=== PATIENT | female | born 1955 | race Caucasian/White ===

== ENCOUNTER 2020-03-06 08:42 | Outpatient (CLI) | payer OTHER, MEDICARE ==
[2020-03-06] MEDS ORDERED: TURMERIC PO (09:36)
[2020-03-06] MEDS ORDERED: ACET1TAB64 PO (09:36)
[2020-03-06] MEDS ORDERED: HYDR50CA2 PO (09:36)
[2020-03-06] MEDS ORDERED: VITAMIN B12 INJ (09:36)
== END 2020-03-06 23:59 | disposition home or self-care (01) ==
LOC: STAR 08:42
PROVIDERS: ATTEND Obstetrics & Gynecology Reproductive Endocrinology
DX: Z01.812 Encounter for preprocedural laboratory examination (principal); Z20.822 Contact with and (suspected) exposure to COVID-19; M25.572 Pain in left ankle and joints of left foot; S93.402A Sprain of unspecified ligament of left ankle, initial encounter; S82.842A Displaced bimalleolar fracture of left lower leg, initial encounter for closed fracture; X58.XXXA Exposure to other specified factors, initial encounter; Y93.89 Activity, other specified; Y92.89 Other specified places as the place of occurrence of the external cause; Y99.8 Other external cause status
CPT/HCPCS: 87635; 93005

== ENCOUNTER 2020-03-10 08:10 | Day surgery (SDC) | payer MEDICARE, OTHER ==
[2020-03-06 09:29] VITALS: BP 124/84
[~2020-03-10] VITALS: Ht 172.7 cm; Wt 105.3 kg
[~2020-03-10 08:10] MED LIST: ACET1TAB64 PO; HYDR50CA2 PO; TURMERIC PO; VITAMIN B12 INJ
[2020-03-10] MEDS ORDERED: vit b 12 PO (08:34)
[2020-03-10] MEDS ORDERED: CHLORHEXIDINE 15 ML UDC ONE (08:39)
[2020-03-10] MEDS ORDERED: LACTATED RINGERS 1,000 ML IV SCH (09:00)
[2020-03-10] MEDS ORDERED: CHLORHEXIDINE 15 ML UDC MM ONE (09:00)
[2020-03-10] MEDS ORDERED: LIDOCAINE/PF 1%, 30ML ONE (09:02)
[2020-03-10] MEDS ORDERED: EPINEPHRINE 1 MG/ML, 1ML ONE (09:02)
[2020-03-10] MEDS ORDERED: BUPIVACAINE/PF 0.5% ONE (09:02)
[2020-03-10] MEDS ORDERED: SCOPOLAMINE 1MG PATCH TD ONE (09:52)
[2020-03-10] MEDS ORDERED: MIDAZOLAM 1 MG/ML, 2ML ONE (09:53)
[2020-03-10] MEDS ORDERED: FENTANYL PF 100 MCG/2ML ONE (09:53)
[2020-03-10] MEDS ORDERED: PROPOFOL 10 MG/ML, 20ML ONE (09:57)
[2020-03-10] MEDS ORDERED: ONDANSETRON 2MG/ML, 2ML ONE (09:57)
[2020-03-10] MEDS ORDERED: CEFAZOLIN 1,000 MG ONE (09:57)
[2020-03-10] MEDS ORDERED: DEXAMETHASONE 4 MG/ML, 1ML ONE (09:57)
[2020-03-10] MEDS ORDERED: PROMETHAZINE 25 MG/ML, 1ML IVPush PRN (10:30)
[2020-03-10] MEDS ORDERED: MEPERIDINE/PF 25MG/0.5ML IVPush PRN (10:30)
[2020-03-10] MEDS ORDERED: KETOROLAC 30 MG/1 ML IVPush PRN (10:30)
[2020-03-10] MEDS ORDERED: FENTANYL PF 100 MCG/2ML IV PRN (10:30)
[2020-03-10] MEDS ORDERED: ONDANSETRON 2MG/ML, 2ML IVPush PRN (10:30)
[2020-03-10] MEDS ORDERED: HYDROcodone/APAP 7.5-325MG/15ML UDC PO PRN (10:30)
[2020-03-10] MEDS ORDERED: OXYcodone 5 MG/5 ML ORAL.SOL UDC PO PRN (10:30)
[2020-03-10] MEDS ORDERED: HYDROmorphone 1 MG/ML, 1ML INJ IVPush PRN (10:30)
[2020-03-10] MEDS ORDERED: MEPERIDINE/PF 25MG/ML,1ML ONE (11:10)
[2020-03-10] MEDS ORDERED: KETOROLAC 30 MG/1 ML ONE (11:35)
== END 2020-03-10 13:25 | disposition home or self-care (01) ==
LOC: OUT 08:10
PROVIDERS: ATTEND Orthopaedic Surgery Foot and Ankle Surgery
DX: S82.842A Displaced bimalleolar fracture of left lower leg, initial encounter for closed fracture (principal); S93.432A Sprain of tibiofibular ligament of left ankle, initial encounter; E66.9 Obesity, unspecified; Z79.899 Other long term (current) drug therapy; Z87.891 Personal history of nicotine dependence; Z88.5 Allergy status to narcotic agent; Z88.8 Allergy status to other drugs, medicaments and biological substances; Z98.890 Other specified postprocedural states; Z82.3 Family history of stroke; W10.8XXA Fall (on) (from) other stairs and steps, initial encounter; Y93.89 Activity, other specified; Y92.098 Other place in other non-institutional residence as the place of occurrence of the external cause; Y99.8 Other external cause status
CPT/HCPCS: 27814; 27829; 73600; C1713; J0690; J1100; J1885; J2175; J2250; J2405; J2704; J3010; J7120; 76000; J0171